=== PATIENT | male | born 1955 | race Caucasian/White ===

== ENCOUNTER 2020-12-02 05:49 | Emergency (ER) | payer MEDICARE ==
[~2020-12-02] VITALS: Ht 182.9 cm; Wt 90.9 kg
[2020-12-02 06:19] LABS: EOS % 0.6 % (0-4.0); GRAN # 2.8 (1.4-6.5); GRAN % 56.7 % (42.2-75.2); LYMPH # 1.9 (1.2-3.4); MEAN CELL VOLUME 95 fl (80.0-100.0); MEAN CORPUSCULAR HEMOGLOBIN 32 pg (27.0-31.0); MEAN CORPUSCULAR HGB CONC 34 g/dl (33.0-37.0); MEAN PLATELET VOLUME 9.7 fl (7.4-10.4); MONO # 0.2 (0.1-0.6); MONO % 3.3 % (1.7-9.3); PLATELET COUNT 178 K/mm3 (130-400); RED BLOOD COUNT 4.97 M/mm3 (4.20-5.60); REDCELL DISTRIBUTION WIDTH-CV 11.9 % (11.5-14.5)
[2020-12-02 06:20] LABS: ALANINE AMINOTRANSFERASE 39 U/L (4-49); ALBUMIN 3.7 gm/dL (3.5-5.0); ALKALINE PHOSPHATASE 47 U/L (50-136); ANION GAP 4 mmol/L (7-16); AST,SGOT 28 U/L (15-37); BILIRUBIN,TOTAL 0.6 mg/dL (0.0-1.0); BLOOD UREA NITROGEN 14 mg/dL (9-20); CALCIUM 8.5 mg/dL (8.4-10.2); CARBON DIOXIDE 26 mmol/L (22-30); CHLORIDE 111 mmol/L (98-107); CREATININE, serum 0.97 (0.66-1.25); GLUCOSE 199 mg/dL (74-106); POTASSIUM 4.2 mmol/L (3.4-5.0); SODIUM 141 mmol/L (137-145); TOTAL PROTEIN 6.5 gm/dL (6.4-8.2)
[2020-12-02 06:25] LABS: PROTHROMBIN TIME 11.2 SECONDS (9.7-12.8)
[2020-12-02 06:27] LABS: PARTIAL THROMBOPLASTIN TIME 22.7 SECONDS (26.0-37.0)
[2020-12-02 06:29] LABS: COLLECTION METHOD IN
[2020-12-02 06:35] LABS: PH 5 (5-8); SQUAMOUS EPITHELIAL 0-2 /hpf; URINE APPEARANCE Clear; URINE BACTERIA Rare /hpf; URINE BILIRUBIN Negative (NEGATIVE); URINE BLOOD Negative (NEGATIVE); URINE COLOR Yellow; URINE GLUCOSE Negative (NEGATIVE); URINE KETONE Negative (NEGATIVE); URINE LEUKOCYTE ESTERASE Negative (NEGATIVE); URINE NITRATE Negative (NEGATIVE); URINE PROTEIN(semi-quant) Negative (NEGATIVE); URINE RBC 0-2 /hpf; URINE UROBILINOGEN Negative (NEGATIVE); URINE WBC 0-2 /hpf
[2020-12-02 06:38] LABS: CREATINE KINASE 71 U/L (55-170); LACTATE DEHYDROGENASE 533 U/L (313-618); LIPASE 129 U/L (23-300)
[2020-12-02 06:40] LABS: C-REACTIVE PROTEIN < 0.5 mg/dL (0.0-0.9)
[2020-12-02 06:42] LABS: ERYTHROCYTE SEDIMENTATION RATE 1 mm/hr (0-30)
[2020-12-02 06:54] LABS: TROPONIN-I < 0.012 ng/mL (0.000-0.035)
[2020-12-02 07:06] LABS: ARTERIAL BLD GAS O2 SATURATION 99.9 % (92-100); ARTERIAL BLD GAS TCO2 CT 22.6; ARTERIAL BLOOD GAS BASE EXCESS -9.8 (-2-2); ARTERIAL BLOOD GAS HCO3 20.6 meq/L (22-26)
[2020-12-02 07:07] LABS: ARTERIAL BLOOD GAS PCO2 65.3 mmHg (35-45); ARTERIAL BLOOD GAS PO2 453.9 mmHg (80-100); ARTERIAL BLOOD GAS pH 7.12 (7.35-7.45)
[2020-12-02] MEDS ORDERED: INDERAL LA 80MG80 MG PO (10:32)
[2020-12-02] MEDS ORDERED: IMDUR 60MG60 MG/TAB PO (10:35)
[2020-12-02] MEDS ORDERED: LIPITOR 40MG TA40 MG PO (10:35)
[2020-12-02] MEDS ORDERED: IPRATROPIUM BROM3 M1 IH (10:36)
[2020-12-02] MEDS ORDERED: COZAAR 25MG25 MG/TAB PO (10:37)
[2020-12-02] MEDS ORDERED: PROAIR HFA0.09 MG/AC IH (10:38)
[2020-12-02] MEDS ORDERED: PROVENTIL0.09 MG/A1 IH (10:38)
[2020-12-02] MEDS ORDERED: NORVASC 5MG5 MG/TAB PO (10:38)
[2020-12-02] MEDS ORDERED: PREDNISONE10 MG (10:39)
[2020-12-02] MEDS ORDERED: PLAVIX 75MG TAB75 MG PO (10:40)
[2020-12-02] MEDS ORDERED: ASPIRIN E.C. 8181 MG PO (10:41)
[2020-12-02 11:47] VITALS: TEMP 96.6
[2020-12-02 13:00] VITALS: BP 131/78; PULSE 74
== END 2020-12-02 13:00 | disposition short-term general hospital (02) ==
LOC: COL.ER 05:49
PROVIDERS: Emergency Medicine
DX: J96.01 Acute respiratory failure with hypoxia (principal); I95.9 Hypotension, unspecified; I25.2 Old myocardial infarction; I10 Essential (primary) hypertension; J45.909 Unspecified asthma, uncomplicated; C67.9 Malignant neoplasm of bladder, unspecified; Z20.822 Contact with and (suspected) exposure to COVID-19; Z79.82 Long term (current) use of aspirin; Z95.5 Presence of coronary angioplasty implant and graft
CPT/HCPCS: J0330; J0692; J1100; J2250; J2704; J3010; J7030; J7060; Q9967

== ENCOUNTER → 2021-01-15 | Outpatient (CLI) | payer MEDICARE ==
[~2021-01-15] MED LIST: ASPIRIN E.C. 8181 MG PO; COZAAR 25MG25 MG/TAB PO; IMDUR 60MG60 MG/TAB PO; INDERAL LA 80MG80 MG PO; IPRATROPIUM BROM3 M1 IH; LIPITOR 40MG TA40 MG PO; NORVASC 5MG5 MG/TAB PO; PLAVIX 75MG TAB75 MG PO; PREDNISONE10 MG; PROAIR HFA0.09 MG/AC IH; PROVENTIL0.09 MG/A1 IH
--- NOTE | 2021-01-15 11:18 | NUR ---
PATIENT WILL NEED TO RESCHEDULE DUE TO TAKING MEDICATIONS LESS THAN 48HOURS BEFORE APPOINTMENT.
== END ==
LOC: COL.PUL 11:00
DX: R06.00 Dyspnea, unspecified (principal)

== ENCOUNTER → 2021-01-28 | Outpatient (CLI) | payer MEDICARE | LOC: COL.PUL 11:11 | DX: R06.00 Dyspnea, unspecified (principal); R06.02 Shortness of breath ==

== ENCOUNTER 2021-07-17 12:41 | Outpatient (CLI) | payer MEDICARE ==
[~2021-07-17] VITALS: Ht 170.2 cm; Wt 85.6 kg
[2021-07-17 15:09] VITALS: BP 149/113; PULSE 66; TEMP 98.4
== END 2021-07-17 15:09 ==
LOC: EUO 12:41
DX: J45.50 Severe persistent asthma, uncomplicated (principal); Z79.899 Other long term (current) drug therapy
CPT/HCPCS: J2357

== ENCOUNTER 2021-07-31 12:43 | Outpatient (CLI) | payer MEDICARE ==
[~2021-07-31] VITALS: Ht 170.2 cm; Wt 85.4 kg
[2021-07-31 13:00] VITALS: BP 132/100; PULSE 60; TEMP 98
--- NOTE | 2021-07-31 13:45 | NUR ---
Pt exits dept at this time following 2nd xolair injections. Respirations remain even and unlabored. Gait steady.
== END 2021-07-31 14:01 | disposition home or self-care (01) ==
LOC: EUO 12:43
DX: J45.50 Severe persistent asthma, uncomplicated (principal)
CPT/HCPCS: J2357

== ENCOUNTER 2021-08-14 12:51 | Outpatient (CLI) | payer MEDICARE ==
[~2021-08-14] VITALS: Ht 170.2 cm; Wt 85.3 kg
[2021-08-14 13:10] VITALS: BP 149/88; PULSE 65; TEMP 98
== END 2021-08-14 16:35 | disposition home or self-care (01) ==
LOC: EUO 12:51
DX: J45.50 Severe persistent asthma, uncomplicated (principal)
CPT/HCPCS: J2357

== ENCOUNTER 2021-08-28 12:56 | Outpatient (CLI) | payer MEDICARE ==
[~2021-08-28] VITALS: Ht 170.2 cm; Wt 85.2 kg
[2021-08-28 13:35] VITALS: BP 159/109; PULSE 59; TEMP 98.2
== END 2021-08-28 13:50 ==
LOC: EUO 12:56
DX: J45.50 Severe persistent asthma, uncomplicated (principal)
CPT/HCPCS: J2357

== ENCOUNTER 2021-09-11 12:52 | Outpatient (CLI) | payer MEDICARE, OTHER ==
[~2021-09-11] VITALS: Ht 170.2 cm; Wt 85.9 kg
[2021-09-11 13:30] VITALS: BP 125/71; PULSE 63; TEMP 98.1
== END 2021-09-11 14:12 ==
LOC: EUO 12:52
DX: J45.50 Severe persistent asthma, uncomplicated (principal)
CPT/HCPCS: J2357

== ENCOUNTER → 2022-08-20 | Outpatient (CLI) | payer MEDICARE, OTHER | LOC: COL.RAD 14:50 | DX: K57.32 Diverticulitis of large intestine without perforation or abscess without bleeding (principal) | CPT/HCPCS: Q9967 ==

== ENCOUNTER 2023-02-14 08:31 | Day surgery (SDC) | payer MEDICARE ==
[2023-02-14] VITALS (12 sets, daily range): BP systolic 117–152; BP diastolic 49–83; PULSE 60–98; TEMP 97.2–99.9
[~2023-02-14] VITALS: Ht 170.2 cm; Wt 83.5 kg
[2023-02-14] MEDS ORDERED: VITAMIND3 5000 PO (10:20)
[2023-02-14] MEDS ORDERED: FLONASE NASAL S16 GM NS (10:21)
[2023-02-14] MEDS ORDERED: SINGULAIR 110 MG/TAB PO (10:21)
[2023-02-14] MEDS ORDERED: PRILOSEC 20MG20 MG PO (10:22)
[2023-02-14] MEDS ORDERED: FLOMAX 0.40.4 MG/CAP (10:22)
[2023-02-14] MEDS ORDERED: ZYRTEC 10MG10 MG PO (10:23)
--- NOTE | 2023-02-14 10:40 | NUR ---
0854 PT AMBULATORY TO [facility] WITH STEADY GAIT, BREATHING EVEN AND UNLABORED. PT IS ALERT AND ORIENTED, ACCOMPANIED BY HIS . CONSENTS REVIEWED AND SIGNED BY PT. IV ESTABLISHED. LR INFUSING VIA DIAL A FLOW AT 100 ML/HR. CALL LIGHT IN REACH. WARM BLANKET OFFERED AND DECLINED.
--- NOTE | 2023-02-14 16:15 | NUR ---
REPORT RECEIVED FROM PACU NURSE ISAC PT UP TO FLOOR AT THIS TIME. PT A/O X4, PAIN 5/10 IN L KNEE. L KNEE WITH KADEN WRAP, ICE, AND ELIVATED. PT ABLE TO WIGGLE TOES, LOWER EXTREMITY WARM, AND PULSES +2. FAMILY AT BEDSIDE. PAIN MEDICATION PROVIDED. VITALS STABLE. WILL CONTINUE TO MONITOR.
--- NOTE | 2023-02-14 19:52 | NUR ---
REPORT RECIEVED FROM DAEV LARSON. PT RESTING IN BED. PT COMPLAINING OF NAUSEA AND PAIN. CALLED ARYAN MARTIN FOR PHENERGEN IV PRN AND PRN BREATHING TX AT REQUEST OF THE PT. NEW ORDERS ADDED. PRN PHENERGEN ADMINISTERED FOR NAUSEA AND SCHEDULED TORADOL ADMINISTERED FOR PAIN. CALL LIGHT IN PLACE. ALL NEEDS MET AT THIS TIME.
--- NOTE | 2023-02-14 20:25 | NUR ---
SHIFT ASSESSMENT COMPLETE, SEE DOCUMENTATION. PT REPORTS PRN PHENERGEN RESOLVED NAUSEA AND IS ATTEMPTING TO EAT DINNER NOW. PT ALSO REPORTS PRN TORADOL DECREASED HIS PAIN FROM A 5/10 TO A 3/10. PT ON PHONE WITH FAMILY. CALL LIGHT IN PLACE. ALL NEEDS MET AT THIS TIME.
[2023-02-15] VITALS (9 sets, daily range): BP systolic 109–126; BP diastolic 59–68; PULSE 65–84; TEMP 97.8–99.2
--- NOTE | 2023-02-15 01:15 | NUR ---
PT REQUESTING BREATHING TX. CALLED RT. BREATHING TX ONGOING NOW. CALL LIGHT IN PLACE. ALL NEEDS MET AT THIS TIME.
--- NOTE | 2023-02-15 05:53 | NUR ---
PT UP TO BATHROOM. UNSTEADY GAIT BUT PT TOLERATED WELL. PT DENIES PAIN. PT REQUESTS PRN BREATHING TX. RT CALLED. AWAITING BREATHING TX NOW. PT DID VOID WITHOUT DIFFICULTY. CALL LIGHT IN PLACE. ALL NEEDS MET AT THIS TIME.
[2023-02-15 06:44] LABS: HEMOGLOBIN 12.8 g/dl (13.5-18.0)
[2023-02-15 07:03] LABS: CALCIUM 8.3 mg/dL (8.4-10.2); CREATININE, serum 0.92 mg/dL (0.72-1.25); POTASSIUM 4.4 mmol/L (3.5-4.5)
[2023-02-15] MEDS ORDERED: CEPHALEXIN500 M1 PO (14:10)
[2023-02-15] MEDS ORDERED: PERCOCET 325 MG1 TA2 PO (14:11)
[2023-02-15] MEDS ORDERED: XARELTO10 MG PO (14:12)
--- NOTE | 2023-02-15 14:46 | NUR ---
Initial visit: solid die cutter stopped by room on rounds. Pt was resting and content. Pt has no needs right now. Certified Medical Records Coder will follow up as needed.
--- NOTE | 2023-02-15 15:15 | NUR ---
DISCHARGE INSTRUCTIONS REVIEWED WITH PT AND FAMILY. QUESTIONS ANSWERED. PT LEFT UNIT PER WHEEL CHAIR WITH STAFF.
--- NOTE | 2023-02-15 16:44 | NUR ---
dust box worker met with patient to discuss discharge planning. Patient had requested to use the restroom, nurse came to assist. dust box worker will return. dust box worker was notified patient requested information about home health. Based on the information provided by nursing, patient does not appear to be homebound and may not qualify. dust box worker met with patient, patient's , Kim P# [phone], and patient's daughter to discuss discharge planning. Patient expressed his was hoping he could receive home health services. Patient expressed he is not working and would consider himself home bound. dust box worker presented options for home health or outpatient pt. Patient's daughter expressed it may be beneficial for patient to get out of the house and go to outpatient PT especially if it is only three weeks worth. dust box worker expressed she would send a referral to home health or outpatient PT whichever is his preference. Patient chose outpatient PT at [facility] as his had services there in the past and enjoyed it. Patient confirmed he lives in [place] with his , Kim. His daughter is visiting for the next couple weeks. Patient's primary care physician is Dr. Ferguson and preferred pharmacy is [facility]. Patient denied any difficulty with affording his medications. Patient expressed he was working on obtaining a legal DPOA-HC as they were also working on a living will. dust box worker offered to establish a DPOA-HC during the hospital but patient would like to wait. Patient has a cane, walker and nebulizer at home. Patient reports he is independent with ADLS at home. dust box worker contacted [facility] and scheduled patient's outpatient PT for , 02/17/23 at 1 pm. dust box worker notified mechanical unit repairer, patient and nursing. No further concerns. Discharge Plan: Home with Outpatient PT
== END 2023-02-15 15:16 | disposition home or self-care (01) ==
LOC: SDCO 08:31 → SURG 16:00 → SDCO 02-15 15:16
PROVIDERS: Orthopaedic Surgery
DX: M17.12 Unilateral primary osteoarthritis, left knee (principal); I10 Essential (primary) hypertension; K21.9 Gastro-esophageal reflux disease without esophagitis; N40.0 Benign prostatic hyperplasia without lower urinary tract symptoms; E78.5 Hyperlipidemia, unspecified; J44.9 Chronic obstructive pulmonary disease, unspecified; Z79.899 Other long term (current) drug therapy
CPT/HCPCS: OP; A9284; C1713; C1776; J0690; J1100; J1170; J1580; J1885; J2250; J2270; J2405; J2550; J2704; J2795; J3010; J7030; J7120